=== PATIENT | female | born 1990 ===

== ENCOUNTER 2017-11-14 10:37 | Emergency (ER) | payer OTHER ==
[2017-11-14 10:48] VITALS: BP 127/75; PULSE 93; RESP 18; TEMP 96.9; O2SAT 99
--- NOTE | 2017-11-14 12:53 | ED PDOC ---
Lower Extremity Pain/Injury Time Seen by Provider: 11/14/17 11:52 Chief Complaint (Nursing): Lower Extremity Problem/Injury Chief Complaint (Provider): Right foot puncture wound History Per: Patient History/Exam Limitations: no limitations Onset/Duration Of Symptoms: Mins Current Symptoms Are (Timing): Still Present Additional Complaint(s): Pt stepped on a screen and it went through her boot. Localized pain. Unknown tetanus. No medication for pain tube winder. Past Medical History Reviewed: Historical Data, Nursing Documentation, Vital Signs Vital Signs: Last Vital Signs Temp 96.9 F L 11/14/17 11:18 Pulse 93 H 11/14/17 11:18 Resp 18 11/14/17 11:18 BP 127/75 11/14/17 11:18 Pulse Ox 99 11/14/17 11:18 - Medical History PMH: No Chronic Diseases - Surgical History Surgical History: No Surg Hx - Family History Family History: States: No Known Family Hx - Living Arrangements Living Arrangements: With Family - Social History Current smoker - smoking cessation education provided: No - Immunization History Hx Tetanus Toxoid Vaccination: No Hx Influenza Vaccination: No Hx Pneumococcal Vaccination: No - Home Medications Home Medications: Ambulatory Orders Medication Instructions Recorded Amoxicillin/Clavulanate [Augmentin 1 tab PO BID #20 tab 11/14/17 875 MG-125 MG] - Allergies Allergies/Adverse Reactions: Allergies Allergy/AdvReac Type Severity Reaction Status Date / Time No Known Allergies Allergy Verified 11/14/17 11:17 Review of Systems ROS Statement: Except As Marked, All Systems Reviewed And Found Negative Constitutional: Negative for: Fever, Chills Musculoskeletal: Positive for: Foot Pain Skin: Positive for: Other Physical Exam - Reviewed Nursing Documentation Reviewed: Yes Vital Signs Reviewed: Yes - Physical Exam Appears: Positive for: Well, Non-toxic, No Acute Distress Head Exam: Positive for: ATRAUMATIC, NORMAL INSPECTION, NORMOCEPHALIC Skin: Positive for: Warm. Negative for: Normal Color (Puncture wound, right foot, base of 2nd toe ) Eye Exam: Positive for: Normal appearance ENT: Positive for: Normal ENT Inspection Neck: Positive for: Normal, Painless ROM Respiratory: Negative for: Accessory Muscle Use, Wheezing, Respiratory Distress Gastrointestinal/Abdominal: Positive for: Normal Exam, Bowel Sounds, Soft Back: Positive for: Normal Inspection Extremity: Positive for: Normal ROM, Tenderness. Negative for: Deformity, Swelling Neurologic/Psych: Positive for: Alert - Laboratory Results Result Diagrams: 11/14/17 14:39 11/14/17 14:39 - ECG O2 Sat by Pulse Oximetry: 99 Medical Decision Making Medical Decision Making: x-ray normal. Pt given motrin for pain. Tetnaus given in ER. Pts test (+) in ER. Pt states her LMP was 10/14/18. PT states she began bleeding last night. Denies abdominal pain. Abdomen soft and non-tender. US (+) IUP without heart beat with beta >[id number]. Discussed results with patient and f.u with clinic for repeat labs. Blood type (+) Disposition - Clinical Impression Clinical Impression: Tetanus toxoid vaccination administered at current visit, Vaginal bleeding in , Puncture wound, Foot pain - Patient ED Disposition Is Patient to be Admitted: No Counseled Patient/Family Regarding: Diagnosis, Need For Followup, Rx Given - Disposition Referrals: [facility] [Outside] [facility] [[facility]] Disposition: Routine/Home Disposition Time: 12:54 Condition: GOOD Prescriptions: Amoxicillin/Clavulanate [Augmentin 875 MG-125 MG] 1 tab PO BID #20 tab Instructions: Puncture Wound (ED) Forms: [facility] (Lithuanian)
--- NOTE | 2017-11-14 13:05 | RAD ---
PROCEDURE: Right Foot Radiographs. HISTORY: screw threw boot and into foot COMPARISON: None. FINDINGS: BONES: Benign bone island distal tibial metaphysis No fracture. JOINTS: Normal. SOFT TISSUES: Normal. OTHER FINDINGS: No radiopaque foreign body. No cortical interruption or fracture. IMPRESSION: No radiopaque foreign body, cortical interruption or fracture noted
--- NOTE | 2017-11-14 14:35 | US ---
PROCEDURE: OB Pelvic Ultrasound HISTORY: vaginal bleeding, LMP 10/14. Beta HCG levels not that now available. COMPARISON: None available. TECHNIQUE: Transvaginal FINDINGS: UTERUS: Gestational sac: Single intrauterine gestation. Mean sac diameter of 1.12 cm corresponds to a 5 week 2 day gestation. . The gestational sac appears grossly normal in shape and position Round yolk sac 0.34 cm noted Heart rate: Not identified at this time bpm. age (Ultrasound estimated): The pole crown-rump length of 0.4 0 cm corresponds to a 6 week 1 day gestation. Laura-gestational hemorrhage: None. Uterus measures 8.0 x 4.8 x 5.1 cm. Normal in size and appearance. No fibroid or other mass lesion seen. CERVIX: Long a 3.5 cm closed. No cervical abnormality seen. RIGHT OVARY: Measures 5.7 x 3.6 x 4 point sick cm. No solid mass lesion. Normal flow. Two cyst 3.5 x 2.6 x 3.7 and 2.6 x 1.9 x 1.5 cm noted LEFT OVARY: Measures 3.0 x 1.2 x 1.2 cm. No solid mass. Normal flow. FREE FLUID: None. OTHER FINDINGS: None. IMPRESSION: Single intrauterine gestation without embryonic cardiac activity demonstrated at this time. An early less than 6 week gestation is 1 consideration. An early failed is another. Correlation with serial beta HCG levels and/or follow-up transvaginal ultrasound imaging in 5 to 10 days is recommended for further evaluation Right benign-appearing ovarian cysts as above
[2017-11-14 14:42] LABS: HEMOGLOBIN 13.1 g/dL (12.0-16.0); MEAN CELL VOLUME 82.8 fl (81.0-99.0); MEAN CORPUSCULAR HEMOGLOBIN 27.3 pg (27.0-31.0); RBC 4.8 Mil/uL (3.80-5.20); RED CELL DISTRIBUTION WIDTH 13.7 % (11.5-14.5); WHITE BLOOD COUNT 9.4 K/uL (4.8-10.8)
[2017-11-14 14:52] LABS: ALB/GLOB RATIO 1.3 (1.0-2.1); ALBUMIN 4.5 g/dL (3.5-5.0); ALT/SGPT 26 U/L (9-52); AST/SGOT 20 U/L (14-36); BLOOD UREA NITROGEN 9 mg/dl (7-17); CALCIUM 9.1 mg/dL (8.4-10.2); GFR AFRICAN-AMERICAN > 60; GFR NON-AFRICAN AMERICAN > 60
== END 2017-11-14 17:37 | disposition home or self-care (01) ==
LOC: H.ER 10:37
DX: S91.331A Puncture wound without foreign body, right foot, initial encounter (principal); W26.8XXA Contact with other sharp object(s), not elsewhere classified, initial encounter; Y92.89 Other specified places as the place of occurrence of the external cause; O20.9 Hemorrhage in early pregnancy, unspecified; Z3A.01 Less than 8 weeks gestation of pregnancy

== ENCOUNTER 2017-12-04 20:59 | Emergency (ER) | payer OTHER ==
[2017-12-04 21:50] VITALS: O2SAT 100
[2017-12-04 22:24] LABS: BASO # 0.1 K/uL (0.0-0.2); BASO % 1.1 % (0.0-2.0); EOS # 0.3 K/uL (0.0-0.7); EOS % 2.1 % (0.0-4.0); HEMOGLOBIN 12.5 g/dL (12.0-16.0); LYMPH # 2.6 K/uL (1.0-4.3); LYMPH % 21.9 % (20.0-40.0); MEAN CORPUSCULAR HEMOGLOBIN 27.2 pg (27.0-31.0); MEAN CORPUSCULAR HGB CONC 32.7 g/dL (33.0-37.0); MEAN PLATELET VOLUME 9.3 fl (7.2-11.7); MONO # 0.9 K/uL (0.0-0.8); MONO % 7.8 % (0.0-10.0); NEUT # 8.1 K/uL (1.8-7.0); NEUT % 67.1 % (50.0-75.0); NRBC % 0.2 % (0.0-0.0); RBC 4.61 Mil/uL (3.80-5.20); RED CELL DISTRIBUTION WIDTH 13.3 % (11.5-14.5); WHITE BLOOD COUNT 12.1 K/uL (4.8-10.8)
[2017-12-04 23:20] LABS: SQUAMOUS EPITHIAL 1 /hpf (0-5); URINE BACTERIA RARE (<OCC); URINE BILIRUBIN NEGATIVE (NEGATIVE); URINE BLOOD MODERATE (NEGATIVE); URINE CLARITY SLIGHTY-CLOUDY (Clear); URINE COLOR STRAW (YELLOW); URINE GLUCOSE (UA) NEG (Normal); URINE LEUKOCYTE ESTERASE SMALL Leu/uL (Negative); URINE NITRATE NEGATIVE (NEGATIVE); URINE PROTEIN NEGATIVE (NEGATIVE); URINE UROBILINOGEN 0.2-1.0 mg/dL (0.2-1.0)
--- NOTE | 2017-12-04 23:32 | ED PDOC ---
HPI: Female Pain Time Seen by Provider: 12/04/17 21:58 Chief Complaint (Nursing): Female Genitourinary Chief Complaint (Provider): Female Genitourinary History Per: Patient History/Exam Limitations: no limitations Onset/Duration Of Symptoms: Hrs (x1) Current Symptoms Are (Timing): Still Present Additional Complaint(s): Keli Dill is a 27 year old female that presents to the ED for vaginal bleeding that began 1 hour prior to arrival. Patient reports that the bleeding has filled less than one pad, and is associated with abdominal cramping. She is currently 9 weeks , and reports that she has experienced mild nausea during her , but denies any vomiting, dysuria, or urinary frequency. Patient states that she is taking vitamins. Of Note: Patient follows with [facility]. : 1 Para: 0 Past Medical History Reviewed: Historical Data, Nursing Documentation, Vital Signs Vital Signs: Last Vital Signs Temp 98.5 F 12/04/17 21:46 Pulse 106 H 12/04/17 21:46 Resp 16 12/04/17 21:46 BP 142/98 H 12/04/17 21:46 Pulse Ox 100 12/04/17 21:46 - Medical History PMH: No Chronic Diseases - Surgical History Surgical History: No Surg Hx - Family History Family History: States: No Known Family Hx - Social History Current smoker - smoking cessation education provided: No - Immunization History Hx Tetanus Toxoid Vaccination: No Hx Influenza Vaccination: No Hx Pneumococcal Vaccination: No - Home Medications Home Medications: Ambulatory Orders Medication Instructions Recorded Amoxicillin/Clavulanate [Augmentin 1 tab PO BID #20 tab 11/14/17 875 MG-125 MG] - Allergies Allergies/Adverse Reactions: Allergies Allergy/AdvReac Type Severity Reaction Status Date / Time No Known Allergies Allergy Verified 12/04/17 21:46 Review of Systems ROS Statement: Except As Marked, All Systems Reviewed And Found Negative Gastrointestinal: Positive for: Abdominal Pain (cramping). Negative for: Vomiting Genitourinary Female: Positive for: Vaginal Bleeding. Negative for: Dysuria, Frequency Physical Exam - Reviewed Nursing Documentation Reviewed: Yes Vital Signs Reviewed: Yes - Physical Exam Appears: Positive for: Non-toxic, No Acute Distress Head Exam: Positive for: ATRAUMATIC, NORMOCEPHALIC Skin: Positive for: Warm, Dry Eye Exam: Positive for: EOMI, PERRL Respiratory: Negative for: Accessory Muscle Use, Respiratory Distress Gastrointestinal/Abdominal: Positive for: Soft. Negative for: Tenderness, Mass , Distended, Guarding Neurologic/Psych: Positive for: Alert. Negative for: Motor/Sensory Deficits - Laboratory Results Result Diagrams: 12/04/17 22:15 - ECG O2 Sat by Pulse Oximetry: 100 (RA) Pulse Ox Interpretation: Normal Medical Decision Making Medical Decision Making: Impression: Vaginal Bleeding in First Trimester , ddx include but not limited to Demise vs. Threatened Miscarriage vs. Ectopic vs. UTI Plan: * US Transvaginal * Urine Dip * Urine Preg * Chlamydia/GC RNA * Type and Screen * Reevaluation * US demonstrates IUP 8wk Rh + blood Labs with no emergetnly significant abnormalities DW pt findings and plan of care. Bleeding isntructions given. Scribe Attestation: Documented by Vicki Fragoso, acting as a scribe for Emilia Shanks MD. Provider Scribe Attestation: All medical record entries made by the Scribe were at my direction and personally dictated by me. I have reviewed the chart and agree that the record accurately reflects my personal performance of the history, physical exam, medical decision making, and the department course for this patient. I have also personally directed, reviewed, and agree with the discharge instructions and disposition. Disposition - Clinical Impression Clinical Impression: Threatened Counseled Patient/Family Regarding: Studies Performed, Diagnosis, Need For Followup - Disposition Referrals: [facility] [Outside] (VISITA DEL VALLE GYNECOLOGO EN 2 TAM A CHEQAR DE NUEVO) Disposition: Routine/Home Disposition Time: 00:00 Condition: STABLE Additional Instructions: ARLENE MUCHO LIQUIDOS Y DESCANSE NO MUCHO ACTIVIDAD, NO SEXO, NO TAMPON, NO DOUCHE POR 2-3 TAM REGRESA SI ESTA [place] MAS QUE UN KOTEX CADA MAHSA HORA, SIENTE MUCHO DOLOR, SEINTE A PERDIR CONISIMIENTO, O OTRAS MALAS SINTOMAS VISITA DEL VALLE GYNECOLOGO EN 2 TAM Instructions: Threatened Miscarriage (ED), Pelvic Rest (ED) Forms: [facility] ED School/Work Excuse Print Language: YEMENI
--- NOTE | 2017-12-05 00:09 | US ---
EXAM: US First Trimester, Transabdominal EXAM DATE/TIME: 12/04/2017 10:35 PM CLINICAL HISTORY: 27 years old, female; Signs and symptoms; Lmp or gestational age (in weeks): Unsure; Antepartum complications; Other: Spotting; ; Additional info: Vag bleed preg; beta-hCG 32536.0 TECHNIQUE: Real-time transabdominal obstetrical ultrasound of the maternal pelvis and a first trimester with image documentation. COMPARISON: There are no prior studies for comparison. FINDINGS: Limitations: Body habitus limits transabdominal imaging. Gestation: There is a single intrauterine gestation. Gestational sac has mean diameter 34.4 mm.. Gardere rump length measures 16.4 mm. There is embryonic heart rate of 164 beats per minute. A yolk sac is present, internal diameter measures 4mm . Uterus: Uterus measures approximately 9.8 x 5.3 x cm. Ovaries: Right ovary measures approximately 5 x 4.3 x 5.3 cm. There is a 3.4 x 2.8 x 3.9 cm dominant follicle/cyst.There is expected blood flow on Doppler imaging Left ovary could not be identified. Free fluid: There is no free fluid. Bladder: Bladder is incompletely distended. IMPRESSION: 8 week 2 day single living intrauterine gestation, estimated date of delivery 07/14/18; right ovarian cyst 2
[2017-12-05 00:22] VITALS: BP 116/78; PULSE 90; RESP 18; TEMP 98
== END 2017-12-05 00:22 | disposition home or self-care (01) ==
LOC: H.ER 20:59
DX: O20.0 Threatened abortion (principal); Z3A.09 9 weeks gestation of pregnancy; Z36.9 Encounter for antenatal screening, unspecified

== ENCOUNTER 2018-03-09 21:36 | Emergency (ER) | payer SELFPAY ==
--- NOTE | 2018-03-09 22:38 | OBHP ---
Datetime: 03/09/2018 22:30 IP Adm Impression: , intrauterine ; No Active Labor IP Admit Plan: Observation/Evaluation; Discharge home Admit Comment, IP Provider: 27yo with IUP at 22.4wks reports here today with an episode of vagi nal bleeding which has since stopped. She reports a similar episode about 3 days ago. She denies pelv ic pain or LOF. She reports recurrent episodes since the beginning of the and has not had i ntercourse for the past 5 months. TOCO - None FHR - 140s regular Speculum Exam: Scanty amount of blood in the vagina. Cervix appears closed and intact,. No active bleeding. Assessment: IUP at 22wks Vaginal Bleeding Plan: D/c home F/U with [place] on Sunday. Pelvic rest. Pelvic Type - PN: Adequate Extremities - PN: Normal Abdomen - PN: Normal Back - PN: Normal Breast - PN: Normal Lungs - PN: Normal Heart - PN: Normal Thyroid - PN: Normal Neurologic - PN: Normal HEENT - PN: Normal General - PN: Normal FHR - Baseline A Provider: 140s Membranes, Provider: Intact Contraction Comments Provider: None Gestation - Est Wks by US: 22.4 EGA AdmitDate IP: 22.4 IP Chief Complaint: Vaginal bleeding NICHD Variability Prov Fetus A: Moderate 6-25bpm NICHD Accel Fetus A IP Provider: 10X10 NICHD Decel Fetus A IP Provider: None Dilatation, Provider: 0 Effacement, Provider: 0 Station, Provider: -3 Genitourinary Exam: Normal DTRs - PN: Normal
[2018-03-10 03:08] VITALS: BP 114/65; PULSE 99
== END 2018-03-09 22:55 | disposition home or self-care (01) ==
LOC: H.EROB2 21:36
DX: O46.92 Antepartum hemorrhage, unspecified, second trimester (principal); Z3A.22 22 weeks gestation of pregnancy